=== PATIENT | female | born 1975 | race Two or more races ===

== ENCOUNTER 2024-12-13 07:05 | Day surgery (SDC) | payer OTHER ==
[2024-12-12 12:01] VITALS: BP 112/72
[~2024-12-13] VITALS: Ht 157.5 cm; Wt 59.9 kg
[2024-12-13] MEDS ORDERED: CEFAZOLIN SODIUM 1,000 MG VIAL ONE (12:16)
[2024-12-13] MEDS ORDERED: MORPHINE SULFATE 4 MG/ML VIAL IV ONE (14:55)
[2024-12-13] MEDS ORDERED: MORPHINE SULFATE 2 MG/ML CARTRIDGE IV ONE (14:55)
== END 2024-12-13 16:40 | disposition home or self-care (01) ==
LOC: CIR.AMB 07:05
PROVIDERS: ATTEND Surgery
DX: D05.12 Intraductal carcinoma in situ of left breast (principal); N60.92 Unspecified benign mammary dysplasia of left breast; N60.82 Other benign mammary dysplasias of left breast; R92.1 Mammographic calcification found on diagnostic imaging of breast; D48.62 Neoplasm of uncertain behavior of left breast

== ENCOUNTER 2025-06-13 08:15 | Day surgery (SDC) | payer OTHER ==
[2025-06-12 10:39] VITALS: BP 114/77
[~2025-06-13] VITALS: Ht 157.5 cm; Wt 60.8 kg
[2025-06-13] MEDS ORDERED: MORPHINE SULFATE 4 MG/ML VIAL IV ONE (12:50)
[2025-06-16] MEDS ORDERED: CLINDAMYCIN PHOSPHATE 150 MG/ML (900mg) IV ONE (07:00)
[2025-06-16] MEDS ORDERED: GENTAMICIN SULFATE 40 MG/ML VIAL IR ONE (12:00)
[2025-06-16] MEDS ORDERED: CEFAZOLIN SODIUM 1,000 MG VIAL IV ONE (12:00)
[2025-06-16] MEDS ORDERED: LIDOCAINE HCL 1%/EPINEPHRINE 20ML VIAL IJ ONE (12:00)
[2025-06-16] MEDS ORDERED: POVIDONE-IODINE SCRUB 118 ML BOTT TOP ONE (12:00)
[2025-06-16] MEDS ORDERED: POVIDONE-IODINE 118 ML BOTT TOP ONE (12:00)
== END 2025-06-13 15:10 | disposition home or self-care (01) ==
LOC: ADM 08:15 → CIR.AMB 08:15 → ADM 15:10
PROVIDERS: ATTEND Surgery
DX: D05.02 Lobular carcinoma in situ of left breast (principal); D48.61 Neoplasm of uncertain behavior of right breast; N60.81 Other benign mammary dysplasias of right breast; R92.1 Mammographic calcification found on diagnostic imaging of breast; Z90.13 Acquired absence of bilateral breasts and nipples; Z15.01 Genetic susceptibility to malignant neoplasm of breast; N65.0 Deformity of reconstructed breast

== ENCOUNTER 2025-09-05 08:43 | Day surgery (SDC) | payer OTHER ==
[~2025-09-05] VITALS: Ht 157.5 cm; Wt 59.4 kg
[~2025-09-05 08:43] MED LIST: BACTRIM 400-801 EACH
--- NOTE | 2025-09-05 08:43 | NUR ---
SE RECIBE PACIENTE ALERTA Y CONCIENTE X3. LA MISMA REFIERE TENER CENO DERECHO INFERCTADO POR SAVANNA MASECTOMIA. SE PROCED A KATELYN S/V A LA PACIENTE Y SE UBICA.
[2025-09-05] MEDS ORDERED: FAMOtidine 10 MG/ML (4ML VIAL) IV ONE (08:45)
[2025-09-05] MEDS ORDERED: 0.9 % SODIUM CHLORIDE 1,000 ML IV SCH (09:00)
[2025-09-05] MEDS ORDERED: CLINDAMYCIN PHOSPHATE 900 MG in 0.9 % SODIUM CHLORIDE 100 ML IV SCH (09:00)
--- NOTE | 2025-09-05 09:24 | NUR ---
SE RECIBE PTE FEMENIA DE 50 YRS ALERTA CONCIENTE Y TRANQUILA EN RENETTA CON BARANBDAS ELEVDA. SES EVALUADA POR EL NEHA MURO QUIEN ORDENA TRATAMEITO LA CUAL SE EJECUTA . SE LE REALIZA EKG Y SE PREPARA PARA SHAJI DE OPERACIONES.
[2025-09-05 09:27] LABS: BASO % 0.7 % (0.1-1.2); EOS # 0.12 (0.04-0.54); EOS % 2.0 % (0.7-7.0); LYMPH # 1.33 (1.18-3.74); LYMPH % 22.7 % (19.3-53.1); MEAN PLATELET VOLUME 11.50 fl (9.4-12.4); MONO # 0.60 (0.24-0.82); MONO % 10.2 % (4.7-12.5); NEUT # 3.76 (1.56-6.13); NEUT % 64.2 % (34.0-71.1); RED CELL DISTRIBUTION WIDTH 12.7 % (11.6-14.4)
[2025-09-05 09:53] LABS: INR 0.98
[2025-09-05 10:40] LABS: URINE APPEARANCE Clear; URINE BILIRRUBIN Negative (NEGATIVE); URINE BLOOD Negative; URINE COLOR Yellow; URINE GLUCOSE Negative (NEGATIVE); URINE KETONE 15 (NEGATIVE); URINE LEUKOCYTE Trace; URINE NITRATE Negative; URINE PROTEIN Negative (NEGATIVE); URINE UROBILINOGEN 0.2 E.U./dl
[2025-09-05 10:46] LABS: ALT/SGPT 19 U/L (12-78); AST/SGOT 14 U/L (15-37); BILIRUBIN TOTAL 0.28 mg/dL (0.3-1.2); BUN CREA RATIO 18 (7.0-25.0); CREATININE SERUM 0.76 mg/dL (0.55-1.02); GFR 81.22; GLOBULINA 3.4 G/DL (2.4-3.5); GLUCOSE FASTING 78 mg/dL (65-100); OSMOLALITY SERUM 279 MOSM/KG (275-295)
[2025-09-05 10:46] LABS: URINE BACTERIA 430.7 uL (0.0-1933); URINE EPITHELIAL CELLS 9.6 uL (0.0-38.8); URINE RBC 4.8 uL (0.0-20.8); URINE WBC 9.3 uL (0.0-23.2)
[2025-09-05 10:55] LABS: HCG QUANTITATIVE < 1 mUI/mL (1-3)
[2025-09-05 10:57] LABS: COVID-19 AG NEGATIVE (NEGATIVE)
[2025-09-05 11:11] LABS: URINE CAST 0.43 uL (0.0-1.40)
[2025-09-05] MEDS ORDERED: POVIDONE-IODINE SCRUB 118 ML BOTT TOP ONE (12:41)
[2025-09-05] MEDS ORDERED: POVIDONE-IODINE 118 ML BOTT TOP ONE ×2 (12:55→13:32)
[2025-09-05] MEDS ORDERED: CEFAZOLIN SODIUM 1,000 MG VIAL ONE (12:55)
[2025-09-05] MEDS ORDERED: GENTAMICIN SULFATE 40 MG/ML VIAL ONE (12:55)
[2025-09-05] MEDS ORDERED: ONDANSETRON HCL 2 MG/ML VIAL IV PRN (13:00)
[2025-09-05] MEDS ORDERED: SUGAMMADEX SODIUM 200 MG/2 ML VIAL IV ONE (13:57)
[2025-09-05 22:41] VITALS: BP 100/57; O2SAT 100
== END 2025-09-05 18:28 | disposition home or self-care (01) ==
LOC: CIR.AMB 08:43 → ER 08:43 → SURG 08:48 → ER 08:48 → SURG 18:28 → CIR.AMB 18:28
PROVIDERS: ATTEND General Practice
DX: N61.0 Mastitis without abscess (principal); C50.811 Malignant neoplasm of overlapping sites of right female breast; Z90.11 Acquired absence of right breast and nipple; N60.31 Fibrosclerosis of right breast